=== PATIENT | male | born 1975 | race Caucasian/White ===

== ENCOUNTER 2019-10-30 19:09 | Inpatient (IN) | payer MEDICAID ==
[~2019-10-30] VITALS: Ht 175.3 cm; Wt 98.9 kg
--- NOTE | 2019-10-30 19:21 | NUR ---
PT AAOX4. AMBULATORY WITH STEADY GAIT. BIBSELF C/O ABD PAIN X9 DAYS AND CONSTIPATION. RR EVEN AND UNLABORED, PLACED ON MONITOR AND PULSE OX. VSS. NO ACUTE DISTRESS NOTED.
--- NOTE | 2019-10-30 19:25 | NUR ---
RADAR SCIENTIST AT BEDSIDE FOR LABS AND URINE. SENT.
[2019-10-30 19:49] LABS: BASOPHILS % (AUTO) 0.4 % (0.0-2.0); HEMATOCRIT 37 % (39-51); HEMOGLOBIN 12.6 g/dL (13.5-17.5); LYMPHOCYTES # (AUTO) 0.6 /CMM (0.8-4.8); LYMPHOCYTES % (AUTO) 4.7 % (20.0-44.0); MEAN CORPUSCULAR HGB CONC 34 g/dl (31.0-36.0); MEAN CORPUSCULAR VOLUME 80 fL (80-96); MONOCYTES # (AUTO) 0.5 /CMM (0.1-1.30); MONOCYTES % (AUTO) 4.3 % (2.0-12.0); NEUTROPHILS # (AUTO) 10.8 /CMM (1.8-8.9); NEUTROPHILS % (AUTO) 90.6 % (43.0-81.0); PLATELET COUNT (AUTO) 384 /CMM (150-450)
--- NOTE | 2019-10-30 19:55 | NUR ---
Patient is resting comfortably in bed. Easily aroused. VSS.
[2019-10-30 20:00] LABS: APPEARANCE,URINE Slightly Cloudy (CLEAR); BILIRUBIN,URINE MODERATE (NEGATIVE); BLOOD, URINE Trace-lysed Ery/uL (NEGATIVE); COLOR,URINE Dark (YELLOW); KETONES,URINE 40 (NEGATIVE); LEUKOCYTE ESTERASE ,URINE Negative (NEGATIVE); NITRITE, URINE Negative (NEGATIVE); PH,URINE 6.5 (5.0-8.0); PROTEIN,URINE 30 mg/dl (NEGATIVE); UGLUCOSE Negative (NEGATIVE)
[2019-10-30 20:13] LABS: CALCIUM, SERUM 8.3 mg/dL (8.5-10.1); CREATININE 1.1 mg/dL (0.6-1.3); POTASSIUM 3.2 mmol/L (3.5-5.1)
[2019-10-30] MEDS ORDERED: IV NS 0.9% 250 ML IV ONE (20:14)
[2019-10-30] MEDS ORDERED: IOHEXOL-300 100 ML VIAL IV ONE (20:14)
[2019-10-30] MEDS ORDERED: CT SWABBABLE VALVE TRANS SET 1 EA INFUS.SET MC ONE (20:14)
[2019-10-30 20:19] LABS: BACTERIA,URINE Few /HPF (None Seen); MUCUS,URINE Few /LPF (None Seen); SQUAMOUS EPITHELIAL CELL,UR Few /HPF (None Seen); WBC,URINE 0-2 /HPF (0-3)
[2019-10-30 20:19] LABS: ALBUMIN 2.6 g/dL (3.4-5.0); BILIRUBIN,DIRECT 0.8 mg/dL (0.0-0.2); BILIRUBIN,TOTAL 1.7 mg/dL (0.2-1.0); TOTAL PROTEIN, SERUM 7.3 g/dL (6.4-8.2)
--- NOTE | 2019-10-30 20:35 | NUR ---
PT RETURNED FROM CT
[2019-10-30] MEDS ORDERED: KETOROLAC TROMETHAMINE 15 MG/ML VIAL ONE (21:08)
[2019-10-30] MEDS ORDERED: METRONIDAZOLE 500MG/ NS 100ML 100 ML IV ONE ×2 (21:30→21:31)
[2019-10-30] MEDS ORDERED: IV NS 0.9% 1,000 ML BAG IV ONE (21:30)
[2019-10-30] MEDS ORDERED: KETOROLAC TROMETHAMINE INJ 30 MG/ML VIAL IV ONE (21:30)
[2019-10-30] MEDS ORDERED: PIPERACILLIN /TAZOBACTAM 3.375 G in IV D5W 50 ML IV ONE (21:30)
[2019-10-30] MEDS ORDERED: AMLO10TA7 PO (21:31)
[2019-10-30] MEDS ORDERED: PIPERACILLIN /TAZOBACTAM 3.375 G VIAL IV ONE (21:32)
--- NOTE | 2019-10-30 22:24 | NUR ---
SPOKE WITH GUILLE TOW TRUCK DISPATCHER KWAME. PT CAPITATED TO [facility]. WILL FAX CLINICAL INFORMATION TO TOW TRUCK DISPATCHER PER REQUEST
--- NOTE | 2019-10-30 22:25 | NUR ---
DR. VIERA ON THE PHONE WITH GUILLE WAYNE Addendum: 10/30/19 at 2238 by MASSIEL RAGHU GRANTIST)
--- NOTE | 2019-10-30 23:30 | NUR ---
ATTEMPTED TO CONTACT [facility] ALTERNATIVE ENERGY ENGINEER FOR TRANSFER INFORMATION. NO ANSWER. WILL FOLLOW UP
--- NOTE | 2019-10-31 | NUR ---
ATTEMPTED TO CONTACT [facility] FURNACE CHECKER REGARDING TRANSFER INFORMATION. NO ANSWER. WILL FOLLOW UP
--- NOTE | 2019-10-31 00:14 | NUR ---
SPOKE WITH HIGH SCHOOL COACH KWAME, INFORMED AGAIN [facility] DOES NOT HAVE RAPID COVID TESTING. TRANSFER INFORMATION STILL PENDING
--- NOTE | 2019-10-31 00:34 | NUR ---
ATTEMPTED TO CONTACT [facility] RESIDENTIAL MENTAL HEALTH WORKER KWAME ([phone]) REGARDING TRANSFER INFORMATION. NO ANSWER.
--- NOTE | 2019-10-31 00:42 | NUR ---
ATTEMPTED TO CONTACT [facility] TIMBER MANAGEMENT PROFESSOR REGARDING TRANSFER INFORMATION. NO ANSWER.
--- NOTE | 2019-10-31 00:48 | NUR ---
DR. VIERA ON THE PHONE WITH DR. SEXTON
--- NOTE | 2019-10-31 00:53 | NUR ---
BED ASSIGNMENT 308-2
--- NOTE | 2019-10-31 01:01 | NUR ---
REPORT GIVEN TO CAYETANO MANZO FOR WOODROW PT WILL BE TRANSPORTED TO 3RD FLOOR
--- NOTE | 2019-10-31 01:02 | NUR ---
SPOKE WITH VAISHNAVI, GUILLE ELECTRONIC INSTRUMENT TRADES WORKER, AND INFORMED PT ADMITTED TO [facility]. VAISHNAVI VERBALIZED UNDERSTANDING.
[2019-10-31 01:05] VITALS: BP 142/75
--- NOTE | 2019-10-31 01:05 | NUR ---
MS RN ADMITTING NOTES RECEIVED PT FROM ER VIA [facility] IN STABLE CONDITION. PT A/O X3 AND ABLE TO MAKE NEEDS KNOWN. RESPIRATIONS EVEN AND UNLABORED WITH NO S/S OF ACUTE DISTRESS OR SOB NOTED. NO COMPLAINTS OF PAIN AT THIS TIME. PT NOTED WITH RAC #20G PATENT AND INTACT. SAFETY MEASURES IN PLACE WITH BED IN LOWEST LOCKED POSITION WITH SIDE RAILS UP X2. ORIENTED PT TO ROOM AND STAFF. CALL LIGHT WITHIN REACH. WILL CONTINUE TO MONITOR.
--- NOTE | 2019-10-31 01:15 | NUR ---
MS RN NOTES PT REFUSED TO HAVE WALLET LOCKED IN SAFE WELL GOING OVER ITEMS WITHIN THE WALLET. WILL CONTINUE TO MONITOR.
[2019-10-31] MEDS ORDERED: HYDROCODONE/APAP 5/325MG 1 EACH TABLET PO PRN (01:30)
[2019-10-31] MEDS ORDERED: ZOLPIDEM TARTRATE 5 MG TABLET PO PRN (01:30)
[2019-10-31] MEDS ORDERED: ACETAMINOPHEN 325 MG TABLET PO PRN (01:30)
[2019-10-31] MEDS: IV D5/0.45 NACL 1,000 ML IV PRN (02:13)
[2019-10-31] MEDS ORDERED: PIPERACILLIN /TAZOBACTAM 3.375 G VIAL IV ONE (05:42)
[2019-10-31] MEDS: PIPERACILLIN /TAZOBACTAM 3.375 G in IV D5W 50 ML IV SCH ×3 (05:45→18:16)
[2019-10-31 06:33] LABS: BASOPHILS % (AUTO) 0.4 % (0.0-2.0); EOSINOPHILS % (AUTO) 0.1 % (0.0-6.0); HEMATOCRIT 37 % (39-51); HEMOGLOBIN 12.5 g/dL (13.5-17.5); LYMPHOCYTES % (AUTO) 9.8 % (20.0-44.0); MEAN CORPUSCULAR HGB CONC 34 g/dl (31.0-36.0); MEAN CORPUSCULAR VOLUME 82 fL (80-96); MONOCYTES # (AUTO) 1.2 /CMM (0.1-1.30); NEUTROPHILS # (AUTO) 8.3 /CMM (1.8-8.9); NEUTROPHILS % (AUTO) 78.7 % (43.0-81.0); PLATELET COUNT (AUTO) 323 /CMM (150-450); RED BLOOD CELL COUNT(AUTO) 4.55 MIL/uL (4.5-6.0); WHITE BLOOD COUNT (AUTO) 10.6 K/uL (4.3-11.0)
[2019-10-31 06:40] LABS: CALCIUM, SERUM 8.2 mg/dL (8.5-10.1); CREATININE 0.8 mg/dL (0.6-1.3)
--- NOTE | 2019-10-31 07:42 | NUR ---
MS RN NOTES PT IN BED AWAKE AND ABLE TO MAKE NEEDS KNOWN. PT A/O X3. RESPIRATIONS EVEN AND UNLABORED WITH NO S/S OF ACUTE DISTRESS OR SOB NOTED THROUGHOUT SHIFT. NO COMPLAINTS OF PAIN AT THIS TIME. SAFETY MEASURES IN PLACE WITH BED IN LOWEST LOCKED POSITION WITH SIDE RAILS UP X2. CALL LIGHT WITHIN REACH. WILL ENDORSE TO ONCOMING NURSE FOR WOODROW.
[2019-10-31 08:00] VITALS: BP 136/96
[2019-10-31] MEDS ORDERED: POTASSIUM CHLORIDE 20 MEQ TAB.PRT.SR PO ONE (08:30)
[2019-10-31] MEDS ORDERED: AMLODIPINE BESYLATE 5 MG TABLET PO SCH (09:00)
[2019-10-31 09:03] VITALS: BP 136/76
--- NOTE | 2019-10-31 09:16 | NUR ---
Radiology Spoke with Pathology lab and RN Vivienne Damon, and informed us taht pathology isn't present on weekends. Erick
--- NOTE | 2019-10-31 09:18 | NUR ---
Radiology informed the nurse of the situation.
--- NOTE | 2019-10-31 12:10 | NUR ---
Spoke with doctor Bennett to clarify procedure patient will have. Per CT guided liver abscess.
--- NOTE | 2019-10-31 15:30 | NUR ---
Patient signed consent
--- NOTE | 2019-10-31 15:58 | NUR ---
SPOKE WITH HILL PASSENGER BRAKEMAN AND ANAIS REHMAN @1500 THAT THERE IS NOT A BUILDING MAINTENANCE REPAIRER AVAILABLE TO PERFORM CT DRAINAGE TODAY. THE BUILDING MAINTENANCE REPAIRER WILL BE AVAILABLE TO PERFORM EXAM TOMORROW 10/31 IN THE MORNING.
[2019-10-31 16:00] VITALS: BP 128/90
--- NOTE | 2019-10-31 16:45 | NUR ---
SPOKE WITH ORDERING MD SEXTON, NURSE PILE FABRIC KNITTER, AND CUSTOMER SERVICE AND SALES CONSULTANT HANDMADE TILE ARTIST. THE CT EXAM WILL BE DONE TOMORROW 10/31 AT 0800 DUE TO SEDATION NURSE AND CUSTOMER SERVICE AND SALES CONSULTANT HANDMADE TILE ARTIST AVAILABILITY. CUSTOMER SERVICE AND SALES CONSULTANT RADIOLOGIST BRISA IS AWARE AND WILL BE HERE TOMORROW FOR EXAM.
--- NOTE | 2019-10-31 18:49 | NUR ---
Patient awake A/o x4 , NPO after midnight for liver abscess drainage at 0800 am. Patient denies any pain or d/c at this time. All needs attended. IV line intact with fluids running as ordered. Will endorse to next shift for WOODROW.
--- NOTE | 2019-10-31 19:45 | NUR ---
RN OPENING NOTES RECEIVED REPORT FROM [facility] ANAIS REHMAN. FOUND Pt AWAKE, SITTING UP IN CHAIR, WATCHING TV. NO S/S OF ACUTE DISTRESS OR SOB NOTED. NO C/O PAIN OR DISCOMFORT AT THIS TIME. Pt IS A/OX3, VERBAL, ABLE TO MAKE NEEDS KNOWN. WILL BE NPO AT [facility]; PROCEDURE SCHEDULED TOMORROW @0800AM CONSENT SIGNED BY Pt. IV ACCESS ON RAC #20G, IVF D5 1/2 NS @75ML/HR. SAFETY MEASURES IN PLACE. BED LOW, LOCKED, HOB ELEVATED, SIDE RAILS UP, CALL LIGHT AND BEDSIDE TABLE WITHIN REACH. WILL CONTINUE TO MONITOR Pt's CONDITION AND SAFETY THROUGHOUT THE NIGHT.
[2019-10-31 20:00] VITALS: BP 141/77
[2019-10-31 20:30] VITALS: BP 141/77
[2019-11-01] MEDS: PIPERACILLIN /TAZOBACTAM 3.375 G in IV D5W 50 ML IV SCH (00:14)
[2019-11-01] MEDS: IV D5/0.45 NACL 1,000 ML IV PRN (00:26)
--- NOTE | 2019-11-01 01:10 | NUR ---
RN SARWAT RECEIVED A CALL FROM [place] MAHI CAZARES, SAYING Pt NEEDS TO BE TRANSFERRED TO [facility] DUE TO INSURANCE. INFORMED HER THAT Pt IS SCHEDULED FOR A CT GUIDED LIVER ABSCESS ASPIRATION/DRAINAGE & BIOPSY IN THE MORNING @0800. PER MAHI CAZARES, SAID THAT THE PROCEDURE CAN BE DONE AT [facility]. WILL PAGE DR SEXTON TO GET OK FOR DISCHARGE. Pt ROOM ASSIGNED @ [facility]: #310-B. ACCEPTING ANAIS BONE. # TO CALL FOR REPORT LATER:
--- NOTE | 2019-11-01 01:17 | NUR ---
RN NOTES SPOKE WITH DR. SEXTON ON THE PHONE EXPLAINED THE SITUATION ABOUT Pt NEEDING TO BE TRANSFERRED TONIGHT DUE TO INSURANCE REASONS. DR SEXTON SAID OK TO BE DISCHARGED TONIGHT. WILL CARRY OUT ORDER.
--- NOTE | 2019-11-01 01:20 | NUR ---
RN NOTES SPOKE WITH GENNARO CAZARES ON THE PHONE AGAIN. INFORMED HER THAT DR SEXTON SAID OK FOR THE DISCHARGE/TRANSFER TO [facility]. PER MAHI CAZARES, FOR THE DISCHARGE SAID TO HAVE A CD COPY OF IMAGING, COPY OF WHOLE CHART, TRANSFER ORDER FORM, DC ORDER FROM DARSHAN HAJI, AND COPY OF ALL THE 's NOTES & LABS. SAID TO CALL HER BACK ONCE EVERYTHING IS DONE, SO THAT SHE CAN ARRANGE AN AMBULANCE FARM TRACTOR MECHANIC TIME FOR THE Pt.
--- NOTE | 2019-11-01 02:48 | NUR ---
RN NOTES SPOKE WITH CASE MANAGEMENT DEBORA ON THE PHONE. SLIME PLANT OPERATOR HELPER IS SCHEDULED @0400AM THROUGH [facility] (#: [phone]). ACCEPTING DR AT [facility] IS DR. TAYLOR
--- NOTE | 2019-11-01 03:06 | NUR ---
RN NOTES CALLED [facility] GAVE REPORT TO DOLORES MANZO ([phone]) Pt WILL BE GOING TO ROOM 310-B ACCEPTING REGAL DR WILL BE: DR TAYLOR ETA OF HYDRAULIC LIFT OPERATOR @ [facility] WILL BE [phone]
--- NOTE | 2019-11-01 04:29 | NUR ---
GARBAGE PICK UP WORKER NOTES REPORT GIVEN TO EMT FROM [facility], HERE FOR TRANSPORT RESEARCH PROGRAM COORDINATOR TO [facility]. Pt WAS ABLE TO WALK TO AMBULANCE [facility] WITH STEADY GAIT. NO S/S OF ACUTE DISTRESS OR SOB NOTED. ALL BELONGINGS TAKEN WITH THE Pt. IV ACCESS ON RAC #20G STILL INTACT. NO SIGNS OF LEAKING, REDNESS, OR INFILTRATION NOTED. Pt LEFT FACILITY IN STABLE CONDITION. VS STABLE. REPORT ALREADY GIVEN TO ANAIS BERNAL AT [facility].
== END 2019-11-01 04:25 | disposition short-term general hospital (02) | DRG 279 ==
LOC: ER 19:18 → MED 10-31 00:55
PROVIDERS: ADMIT Internal Medicine; ATTEND Internal Medicine
DX: K75.0 Abscess of liver (principal); I10 Essential (primary) hypertension
CPT/HCPCS: 36415; 80048-TC; 80076-TC; 81000-TC; 83605-TC; 83690-TC; 85025-TC; 85610-TC; 87040-TC; 87081-TC; 87186-TC; G0378; J1885; J2543; J3490; J7030; J7050; J7060; Q9967; U0003-CS